=== PATIENT | female | born 1955 ===

== ENCOUNTER 2016-06-17 07:18 | Day surgery (SDC) | payer BC ==
[2016-06-17 08:15] VITALS: BMI 31.6
[2016-06-17 08:53] VITALS: RESP 20; TEMP 98.2; O2SAT 99
[2016-06-17] MEDS ORDERED: Propofol 10 mg/ml Inj (20 ML) ONE (10:21)
[2016-06-17] MEDS ORDERED: Lidocaine Hydrochloride 5 ML INJ ONE (10:21)
[2016-06-17 11:42] VITALS: BP 115/75; PULSE 69
== END 2016-06-17 11:30 | disposition home or self-care (01) ==
LOC: C.ENDO 07:18
PROVIDERS: ATTEND Internal Medicine Gastroenterology
DX: D12.5 Benign neoplasm of sigmoid colon (principal); D12.3 Benign neoplasm of transverse colon; K57.30 Diverticulosis of large intestine without perforation or abscess without bleeding; K64.1 Second degree hemorrhoids; Z86.010 Personal history of colon polyps; M32.9 Systemic lupus erythematosus, unspecified; I10 Essential (primary) hypertension; E78.5 Hyperlipidemia, unspecified
CPT/HCPCS: 45380; 88305; J2704